=== PATIENT | female | born 1990 | race Caucasian/White ===

== ENCOUNTER 2017-01-31 08:05 | Emergency (ER) | payer OTHER ==
[~2017-01-31] VITALS: Ht 170.2 cm; Wt 56.2 kg
[2017-01-31 08:49] VITALS: BP 119/84
== END 2017-01-31 08:49 | disposition home or self-care (01) ==
LOC: ED 08:05
DX: S05.01XA Injury of conjunctiva and corneal abrasion without foreign body, right eye, initial encounter (principal); X58.XXXA Exposure to other specified factors, initial encounter; Y93.89 Activity, other specified; Y99.8 Other external cause status; Y92.89 Other specified places as the place of occurrence of the external cause